=== PATIENT | male | born 1955 | race Caucasian/White ===

== ENCOUNTER → 2023-12-15 09:01 | Outpatient (BNVA) | payer MEDICARE, SELFPAY | PROVIDERS: PCP Student in an Organized Health Care Education/Training Program; Visit Provider Nurse Practitioner ==

== ENCOUNTER 2024-04-25 08:46 | Day surgery (SDC) | payer MEDICARE, OTHER, SELFPAY ==
[2024-04-25 06:17] VITALS: BMI 35.0
[2024-04-25 09:37] VITALS: BP 97/69; PULSE 56; RESP 20; TEMP 36.2; O2SAT 98
[2024-04-25] MEDS: Lactated Ringers 1,000 ML 100 ML IVCONT (09:40)
--- NOTE | 2024-04-25 10:22 | MHC.SHP ---
Pre-Procedural Eval Section A - 24 Hr Update-Section A only Date of Service: 04/25/24 Section B - Complete if H&P > 30 days Chief Complaint: Other specified postprocedural states Relevant Family History (Specify if Yes): No Relevant Social History: None Present Medications: see Short Stay Collaborative assessment Medical History: Significant History (Obesity High cholesterol Hypertension Depression with anxiety Benign cardiac murmur) History of Previous Operations: Relevant previous surgery/procedure and date(s) ( H/O wisdom tooth extraction Hx of tonsillectomy) Allergies: Allergies Allergy/AdvReac Type Severity Reaction Status Date / Time aspirin AdvReac Intermediate Stomach Verified 12/15/23 09:21 Upset ibuprofen AdvReac Intermediate Stomach Verified 12/15/23 09:21 Upset Review of Systems Sugical H&P ROS: Negative: Constitution, Cardiovascular, Respiratory, Neurological, Psychiatric, Hem-Onc, Allergic/Immunologic, Gastrointestinal, Genitourinary, Musculoskeletal, Integumentary, Endocrine and Eyes/Ears/Nose/Throat Exam Surgical H&P Exam: Normal: HEENT, Normal: Heart, Normal: Lungs, Normal: Extremities, Normal: Abdomen, Normal: Skin and Normal: Neurological Plan Diagnosis/Plan: Unchanged I have reviewed the history and physical and performed a pertinent physical examination on my patient. No changes have occurred unless specified. Time Spent With Patient Time: Total time managing care of this patient today ____ minutes.
--- NOTE | 2024-04-25 10:25 | HO.ANESPROP2 ---
Documented by User: Jalyn Augustin NP 04/24/24 08:25 HPI - Anesthesia Eval Consult details Narrative: 68yo M for Colonoscopy PMFSH Active Problems Active Problems: All Active Problems Benign cardiac murmur (Acute) Pre-op examination (Acute) Depression with anxiety (Acute) Chronic daily headache (Acute) Obesity (Acute) High cholesterol (Acute) Hypertension (Acute) Past Medical History Medical History (Updated 04/25/24 @ 09:36 by Stephanie Whyte, RN) Hx of headache REHAN on CPAP Hx of bundle branch block Benign cardiac murmur Depression with anxiety Obesity High cholesterol Hypertension Surgical History Surgical History Hx of colonoscopy H/O wisdom tooth extraction Hx of tonsillectomy Social History Social History Alcohol intake: former Patient Tobacco Use Status: Former Tobacco user Are you DNR?: No Advance Directives: No Advance Directives Information Provided: Yes Nutrition Risks: No Nutritional Risk Meds Allergies Allergy/AdvReac Type Severity Reaction Status Date / Time aspirin AdvReac Intermediate Stomach Verified 12/15/23 09:21 Upset ibuprofen AdvReac Intermediate Stomach Verified 12/15/23 09:21 Upset Home Medications ?Medication ?Instructions ?Recorded ?Confirmed ?Last Taken ?Type atorvastatin 10 mg tablet 10 mg PO DAILY 12/10/23 Unknown History azelastine 137 mcg (0.1 %) nasal 2 spray intranasal BID 12/10/23 04/25/24 History spray cholecalciferol (vitamin D3) 25 25 mcg PO DAILY 12/10/23 Unknown History mcg (1,000 unit) capsule fluticasone propionate 50 1 spray intranasal DAILY 12/10/23 Unknown History mcg/actuation nasal spray,suspension (Children's Flonase Allergy Relief) gabapentin 600 mg tablet 600 mg PO BEDTIME 12/10/23 Unknown History losartan 50 mg tablet 100 mg PO DAILY 12/10/23 Unknown History multivitamin 1 tab PO DAILY 12/10/23 Unknown History paroxetine HCl 40 mg tablet 40 mg PO DAILY 12/10/23 Unknown History galcanezumab-gnlm 300 mg/3 mL (100 3 subcut QMONTH 04/25/24 04/25/24 Unknown History mg/mL x 3) subcutaneous syringe (Emgality) Assessment and Plan Assessment Anesthesia Assessment: Chart Reviewed Documented by User: Danielle Morel, DO 04/25/24 10:26 PMFSH Past Medical History Medical History (Updated 04/25/24 @ 09:36 by Stephanie Whyte RN) Hx of headache REHAN on CPAP Hx of bundle branch block Benign cardiac murmur Depression with anxiety Obesity High cholesterol Hypertension Family History Family history of problems with anesthesia: No Surgical History Surgical History Hx of colonoscopy H/O wisdom tooth extraction Hx of tonsillectomy History of Problems with Anesthesia: No Social History Social History Alcohol intake: former Patient Tobacco Use Status: Former Tobacco user Are you DNR?: No Advance Directives: No Advance Directives Information Provided: Yes Nutrition Risks: No Nutritional Risk Meds Allergies Allergy/AdvReac Type Severity Reaction Status Date / Time aspirin AdvReac Intermediate Stomach Verified 12/15/23 09:21 Upset ibuprofen AdvReac Intermediate Stomach Verified 12/15/23 09:21 Upset Home Medications ?Medication ?Instructions ?Recorded ?Confirmed ?Last Taken ?Type atorvastatin 10 mg tablet 10 mg PO DAILY 12/10/23 Unknown History azelastine 137 mcg (0.1 %) nasal 2 spray intranasal BID 12/10/23 04/25/24 History spray cholecalciferol (vitamin D3) 25 25 mcg PO DAILY 12/10/23 Unknown History mcg (1,000 unit) capsule fluticasone propionate 50 1 spray intranasal DAILY 12/10/23 Unknown History mcg/actuation nasal spray,suspension (Children's Flonase Allergy Relief) gabapentin 600 mg tablet 600 mg PO BEDTIME 12/10/23 Unknown History losartan 50 mg tablet 100 mg PO DAILY 12/10/23 Unknown History multivitamin 1 tab PO DAILY 12/10/23 Unknown History paroxetine HCl 40 mg tablet 40 mg PO DAILY 12/10/23 Unknown History galcanezumab-gnlm 300 mg/3 mL (100 3 subcut QMONTH 04/25/24 04/25/24 Unknown History mg/mL x 3) subcutaneous syringe (Emgality) Exam Exam Date and Time: April 25, 2024 1025 Height,Weight and Vital Signs: Height 5 ft 5 in Weight 95.39 kg Vital Signs Temperature 97.1 F 04/25/24 09:37 Pulse Rate 56 04/25/24 09:37 Respiratory Rate 20 04/25/24 09:37 Blood Pressure 97/69 04/25/24 09:37 Pulse Oximetry 98 04/25/24 09:37 Oxygen Delivery Method Room Air 04/25/24 09:37 Temperature 97.1 F 04/25/24 09:37 Pulse Rate 56 04/25/24 09:37 Respiratory Rate 20 04/25/24 09:37 Blood Pressure 97/69 04/25/24 09:37 Pulse Oximetry 98 04/25/24 09:37 Oxygen Delivery Method Room Air 04/25/24 09:37 Airway Mallampati Class: III TM Dist: <=3cm Neck ROM: Full Loose/Missing/Broken Teeth: No (patient denies any loose or broken teeth) Heart: S1S2 Lungs: CTAB Assessment and Plan Assessment Anesthesia Assessment: Anesthesia Plan Discussed and Chart Reviewed Final Anesthetic Review Family History of Problems with Anesthesia: No History of Problems with Anesthesia: No NPO: Yes ASA Class: II Final Preanesthetic Review: No Changes in Pt Med Stat, Meds/Allgs Chart Reviewed, Consent Obtained/Reviewed and Anes Risks/Benef Reviewed Patient Risk: Low Procedure Risk: Low Anesthetic Plan Anesthetic Plan: MAC: and Agree w/ Assess. and Plan Disposition: Standard PACU
--- NOTE | 2024-04-25 11:11 | HO.OPN-COLON ---
Colonoscopy Operative Note Operative Note Date of Service: 04/25/24 Narrative: Operative Information Procedure Description: Colonoscopy Indication: screening Anesthesia: MAC COLONOSCOPY Instrument: Olympus variable stiffness adult scope 190L Colonoscopy Monitoring: Vital signs and clinical assessment, continuous EKG monitoring, Pulse oximetry, Carbon Dioxide monitoring and blood pressure monitoring were done throughout the procedure. Colon withdrawal time was 20 minutes. Procedure: The patient was placed in the left lateral decubitis position and pre-procedure medications were administered. After a digital rectal examination of the ano-rectum, the video colonoscope was inserted into the rectum and advanced through the colon to the cecum/TI. The colonoscope was slowly withdrawn in a retrograde panoramic fashion and the colon mucosa was carefully examined including a retroflexed view of the rectum. Findings and interventions are described below. Procedure Difficulty: moderate, some looping Findings: Terminal Ileum-normal Cecum: 4-5 mm sessile polyp removed with cold forceps Ascending Colon: normal Transverse Colon -normal Descending Colon: 13-15 mm lateral spreading flat granular polyp, lifted with eleview injection and then removed piece meal with cold snare and cold forceps, base and edges ablated with cautery, x 2 clips placed to close defect Sigmoid Colon: moderate severe diverticulosis Rectum: Retroflexion with small internal hemorrhoids seen, grade I Anorectum - normal Intervention: eleview injection, cold snare and clips, cold forceps Colon preparation: Reading Bowel Preparation Scale Right colon; 2 Transverse colon: 2 Left colon; 2 (0 = Unprepared colon segment with mucosa not seen due to solid stool that cannot be cleared. 1 = Portion of mucosa of the colon segment seen, but other areas of the colon segment not well seen due to staining, residual stool and/or opaque liquid. 2 = Minor amount of residual staining, small fragments of stool and/or opaque liquid, but mucosa of colon segment seen well. 3 = Entire mucosa of colon segment seen well with no residual staining, small fragments of stool or opaque liquid) Impression and Post Procedure Diagnosis: diverticulosis colon polyps internal hemorrhoids Plan: High fiber diet leaflet Avoid straining at stool, epsom salts and sitz bath, anusol supps or cream Repeat Colonoscopy in 1-2 years due to polyps or earlier if clinically indicated Above findings were reviewed with the patient and relevant handouts were provided if indicated.
[2024-04-25 11:12] VITALS: BP 143/71; PULSE 49; RESP 18; TEMP 36.2; O2SAT 99
[2024-04-25 11:17] VITALS: BP 145/76; PULSE 55; RESP 16; O2SAT 96
[2024-04-25 11:22] VITALS: BP 143/83; PULSE 50; RESP 14; O2SAT 99
[2024-04-25 11:27] VITALS: BP 154/79; PULSE 51; RESP 14; TEMP 36.2; O2SAT 99
== END 2024-04-25 12:17 | disposition home or self-care (01) ==
PROVIDERS: PCP Student in an Organized Health Care Education/Training Program; Visit Provider Internal Medicine Gastroenterology
PROC: 0DJD8ZZ Inspection of Lower Intestinal Tract, Via Natural or Artificial Opening Endoscopic (ICD-10-PCS; CPT 45378; principal; 2024-04-25 11:30)
DX: Z12.11 Encounter for screening for malignant neoplasm of colon (principal); Z83.719 Family history of colon polyps, unspecified; D12.4 Benign neoplasm of descending colon; K63.5 Polyp of colon; K57.30 Diverticulosis of large intestine without perforation or abscess without bleeding; K64.0 First degree hemorrhoids; I10 Essential (primary) hypertension; E78.00 Pure hypercholesterolemia, unspecified; F41.8 Other specified anxiety disorders; R01.0 Benign and innocent cardiac murmurs; R51.9 Headache, unspecified; E66.9 Obesity, unspecified; Z68.34 Body mass index [BMI] 34.0-34.9, adult; Z88.6 Allergy status to analgesic agent; Z98.890 Other specified postprocedural states; Z87.891 Personal history of nicotine dependence
CPT/HCPCS: 45385; 45380; 45381; 88305; J2704

== ENCOUNTER → 2024-04-25 08:46 | Outpatient (BNV) | payer MEDICARE, OTHER, SELFPAY | PROVIDERS: PCP Student in an Organized Health Care Education/Training Program; Visit Provider Internal Medicine Gastroenterology | DX: Z12.11 Encounter for screening for malignant neoplasm of colon (principal); K63.5 Polyp of colon; D12.4 Benign neoplasm of descending colon; K57.30 Diverticulosis of large intestine without perforation or abscess without bleeding; K64.0 First degree hemorrhoids | CPT/HCPCS: 45380; 45381; 45385 ==

== ENCOUNTER 2024-05-18 10:09 | Outpatient (AMB) | payer MEDICARE, OTHER, SELFPAY ==
--- NOTE | 2024-05-18 10:10 | MHC.OFFVIS ---
Vital Signs 05/18/24 10:11 Height 5 ft 5 in Weight 202 lb 13.204 oz BMI 33.7 BP 142/70 H Blood Pressure Location Rt brachial Position Sitting Pulse 72 Intake Visit Reasons: S/p colon Intake Note: Patient in office today in follow up s/p colonoscopy. CC: Patient reports doing well and denies havig any GI concerns Allergies aspirin Adverse Reaction (Intermediate, Verified 05/18/24 10:16) Stomach Upset ibuprofen Adverse Reaction (Intermediate, Verified 05/18/24 10:16) Stomach Upset HPI HPI S/p colon: Details: Assessment & Plan (1) Pre-op examination: Code(s): Z01.818 - Encounter for other preprocedural examination (2) H/O colonoscopy: Code(s): Z98.890 - Other specified postprocedural states (3) Benign cardiac murmur: Comment: had cardiac work up and no concern Code(s): R01.0 - Benign and innocent cardiac murmurs Plan He had 2 prior scopes at [facility] and there were no findings. He tolerated them well. His last was 5-6 years ago. He has a hx of diverticulitis but no flairs for years, no upper GI problems. He denies any problems with anesthesia or sedation. He denies any cardiac or respiratory problems. No ID problems. His father had colon polyps. Orders: Orders Colonoscopy - GI Use Only Today Z01.818 - Encounter for other preprocedural examination Medications: New bisacodyl (Dulcolax (bisacodyl)) 10 mg (2 x 5 mg) PO BEDTIME 2 days 4 tabs 0RF peg 3350-electrolytes 236-22.74-6.74 -5.86 gram (Golytely) until fecal effluent is clear; do not exceed a total volume of 2,000 mL 240 mL PO Q10M 1 day 4,000 mL 0RF Z12.11 - Encounter for screening for malignant neoplasm of colon COLONOSCOPY 04/25/24 Findings: Terminal Ileum-normal Cecum: 4-5 mm sessile polyp removed with cold forceps Ascending Colon: normal Transverse Colon -normal Descending Colon: 13-15 mm lateral spreading flat granular polyp, lifted with eleview injection and then removed piece meal with cold snare and cold forceps, base and edges ablated with cautery, x 2 clips placed to close defect Sigmoid Colon: moderate severe diverticulosis Rectum: Retroflexion with small internal hemorrhoids seen, grade I Anorectum - normal Intervention: eleview injection, cold snare and clips, cold forceps Impression and Post Procedure Diagnosis: diverticulosis colon polyps internal hemorrhoids Plan: High fiber diet leaflet Avoid straining at stool, epsom salts and sitz bath, anusol supps or cream Repeat Colonoscopy in 1-2 years due to polyps or earlier if clinically indicated BIOPSY Received: 04/25/24 Diagnosis A. Colon, cecal polyp: Hyperplastic polyp. B. Colon, descending, polyps: Tubular adenomas (multiple pieces); negative for high-grade dysplasia and carcinoma TODAY'S VISIT He is agreeable to a 2 year follow up. The procedure was well tolerated. The results were explained and the patient is agreeable to the follow-up interval as stated. The bowel pattern has returned to normal. Education was provided to tell any 1st degree relatives about their findings to be sure that they are screened by age 45. Educated that they will be put on a recall list when it is time for their repeat scope but should they move out of state or away from the hospital they will need to remember along with their primary to repeat the procedure in a timely fashion to avoid any adverse complications. prn PFSH Medical History Hx of headache REHAN on CPAP Hx of bundle branch block Benign cardiac murmur Depression with anxiety Obesity High cholesterol Hypertension Surgical History Hx of colonoscopy H/O wisdom tooth extraction Hx of tonsillectomy Social History Alcohol intake: former Patient Tobacco Use Status: Former Tobacco user Review of Systems Const Denies fatigue, Denies fever(s), Denies night sweats, Denies poor appetite and Denies weight loss Eyes Details: glasses Reports requires corrective lenses ENT Reports Normal hearing present, Denies dental pain, Denies dysphagia, Denies hearing loss, Denies mouth pain, Denies odynophagia, Denies throat swelling, Denies tongue swelling and Reports other (Dentition adequate) Card Reports no additional complaints Resp Reports no additional complaints GI Details: Denies abdominal pain, Denies melena, Denies bloating, Denies hematochezia, Denies constipation, Denies GI cramping, Denies dysphagia, Denies excessive flatus, Denies early satiety, Denies heartburn, Denies diarrhea, Denies nausea, Denies odynophagia, Denies vomiting and Denies hematemesis Skin/Breast Denies pruritus, Denies lesions, Denies rash and Denies jaundice Neuro Reports Normal hearing present and Denies Abnormal speech present Endo Denies fatigue Aller/Immun Denies throat swelling and Denies tongue swelling Physical Exam Vital Signs: Last Vital Signs Pulse 72 05/18/24 10:11 BP 142/70 H 05/18/24 10:11 BMI result Body Mass Index 33.7 Const General: cooperative, no acute distress, well developed and well groomed Nutritional Appearance: well nourished and obese Orientation/consciousness: oriented to person, oriented to place and oriented to time Limitations: No language barrier HEENT Head: Yes normocephalic and Yes atraumatic Eyes General: appearance normal, both eyes and all related structures Pupils: Equal, round and reactive pupils present Neck Neck: Yes normal visual inspection and Yes no lymphadenopathy Thyroid: Thyroid normal Resp Effort & Inspection: normal respiratory effort and able to speak in complete sentences Auscultation: clear to auscultation bilaterally Cardio Rate: regular rate Rhythm: regular rhythm Heart sounds: Normal, physiologic split S2 sound present Peripheral pulses: radial pulses present and posterior tibial pulses present GI Inspection: No distended, No Abdominal panniculus present and Yes obesity Palpation (GI): Soft to palpation, nontender, no guarding, not rigid and No hepatosplenomegaly present Percussion: Yes normal to percussion Auscultation: normal bowel sounds Rectal Exam - Male: Yes deferred Skin General skin exam: no rashes or lesions noted, turgor normal, skin not dry, no jaundice, No spider nevi and no striae Rashes: no rashes Nails: normal Neuro General: oriented to person, oriented to place and oriented to time Cranial nerves: Yes Equal, round and reactive pupils present and Yes Normal hearing present Speech: No Abnormal speech present Extrem General: Yes normal to inspection, No clubbing, No cyanosis and No edema Psych Appearance: grossly normal and well kempt Mental Status: mental status grossly normal Speech and movement: Normal speech and movement present Affect: normal affect Attitude: cooperative Thought process: Normal thought process present and not confabulating Thought content: Normal thought content present Insight: Fair insight present (Psych) Judgement: Fair judgement present (Psych) Results Reviewed Results Reviewed: COLONOSCOPY 04/25/24 Findings: Terminal Ileum-normal Cecum: 4-5 mm sessile polyp removed with cold forceps Ascending Colon: normal Transverse Colon -normal Descending Colon: 13-15 mm lateral spreading flat granular polyp, lifted with eleview injection and then removed piece meal with cold snare and cold forceps, base and edges ablated with cautery, x 2 clips placed to close defect Sigmoid Colon: moderate severe diverticulosis Rectum: Retroflexion with small internal hemorrhoids seen, grade I Anorectum - normal Intervention: eleview injection, cold snare and clips, cold forceps Impression and Post Procedure Diagnosis: diverticulosis colon polyps internal hemorrhoids Plan: High fiber diet leaflet Avoid straining at stool, epsom salts and sitz bath, anusol supps or cream Repeat Colonoscopy in 1-2 years due to polyps or earlier if clinically indicated BIOPSY Received: 04/25/24 Diagnosis A. Colon, cecal polyp: Hyperplastic polyp. B. Colon, descending, polyps: Tubular adenomas (multiple pieces); negative for high-grade dysplasia and carcinoma Assessment & Plan Assessment & Plan (1) Tubular adenoma of colon: Comment: 04/2024 SCOPE= 1 TA REPEAT IN 2 YEARS Code(s): D12.6 - Benign neoplasm of colon, unspecified Category: Medical Plan He is agreeable to a 2 year follow up. The procedure was well tolerated. The results were explained and the patient is agreeable to the follow-up interval as stated. The bowel pattern has returned to normal. Education was provided to tell any 1st degree relatives about their findings to be sure that they are screened by age 45. Educated that they will be put on a recall list when it is time for their repeat scope but should they move out of state or away from the hospital they will need to remember along with their primary to repeat the procedure in a timely fashion to avoid any adverse complications. prn Coding Level of Care Code Est Pt Level 3 (76618) Diagnoses Tubular adenoma of colon D12.6
[2024-05-18 10:11] VITALS: BP 142/70; PULSE 72; BMI 33.7
== END 2024-05-18 10:58 | disposition home or self-care (01) ==
PROVIDERS: PCP Student in an Organized Health Care Education/Training Program; Visit Provider Nurse Practitioner
DX: D12.6 Benign neoplasm of colon, unspecified (principal)
CPT/HCPCS: 99213

== ENCOUNTER → 2024-05-18 10:09 | Outpatient (BNVA) | payer MEDICARE, OTHER, SELFPAY | PROVIDERS: PCP Student in an Organized Health Care Education/Training Program; Visit Provider Nurse Practitioner | DX: D12.6 Benign neoplasm of colon, unspecified (principal) | CPT/HCPCS: 99212 ==